=== PATIENT | male | born 1945 | race Caucasian/White ===

== ENCOUNTER 2024-05-25 18:07 | Observation (INO) | payer MEDICARE, BC ==
[2024-05-25 18:48] LABS: Basophils # (A) 0.1 k/uL (0-0.2); Basophils % (A) 1 %; Eosinophils # (A) 0.3 k/uL (0-0.7); Eosinophils % (A) 3 %; HCT 44.7 % (39.0-53.0); HGB 14.5 gm/dL (13.0-17.5); Lymphocytes # (A) 1.4 k/uL (1.0-4.8); Lymphocytes % (A) 16 %; MCH 30.9 pg (25.0-35.0); MCHC 32.4 g/dL (31.0-37.0); MCV 95.5 fL (80.0-100.0); Mean Platelet Volume 6.9; Monocytes # (A) 0.5 k/uL (0-1.0); Monocytes % (A) 6 %; Neutrophils # (A) 6.5 k/uL (1.3-7.7); Neutrophils % (A) 73 %; Platelet Count 213 k/uL (150-450); RBC 4.68 m/uL (4.30-5.90); RDW 12.9 % (11.5-15.5); WBC 8.8 k/uL (3.8-10.6)
[2024-05-25 18:50] LABS: Appearance,Urine Clear (Clear); Bilirubin,Urine Negative (Negative); Blood,Urine Negative (Negative); Color,Urine Light Yellow; Glucose,Urine (UA) Negative (Negative); Ketones,Urine Negative (Negative); Leukocyte Esterase,Urine Negative (Negative); Nitrite,Urine Negative (Negative); PH, Urine 6.5 (5.0-8.0); Protein,Urine Negative (Negative); Specific Gravity,Urine 1.023 (1.001-1.035); Urobilinogen,Urine <2.0 mg/dL (<2.0)
[2024-05-25 18:59] LABS: ALT 16 U/L (4-49); AST 23 U/L (17-59); African American GFR (CKD) >90 (>60 ml/min/1.73 sqM); Albumin 4.5 g/dL (3.5-5.0); Alkaline Phosphatase 73 U/L (38-126); Anion Gap 9 mmol/L; Blood Urea Nitrogen 27 mg/dL (9-20); Calcium 9.7 mg/dL (8.4-10.2); Carbon Dioxide 30 mmol/L (22-30); Chloride 100 mmol/L (98-107); Glucose 100 mg/dL (74-99); Non-African American GFR(CKD) 80 (>60 ml/min/1.73 sqM); Potassium 3.9 mmol/L (3.5-5.1); Sodium 139 mmol/L (137-145); Total Bilirubin 0.6 mg/dL (0.2-1.3); Total Protein 7.5 g/dL (6.3-8.2)
--- NOTE | 2024-05-25 19:23 | ED ---
General Adult HPI - General Chief complaint: Neuro Symptoms/Deficit Stated complaint: fall,dizzy Time Seen by Provider: 05/25/24 18:31 Source: patient, EMS, RN notes reviewed, old records reviewed Mode of arrival: EMS Limitations: no limitations - History of Present Illness Initial comments: Patient is a 79-year-old male who was transferred here from [facility] for stroke rule out. At approximately 11 or 11:30 AM this morning, jose ramon horn was having an expressive aphasia episode that lasted 30 to 45 minutes. Presented to [place] [facility] afterwards but was asymptomatic at that time. Patient does have a history of Parkinson's disease, hypertension, enlarged prostate. Patient currently denies any symptoms. Workup at [place] was unremarkable including CT brain that showed no evidence of acute intracranial process. Patient was transferred here for further evaluation by neurology. He has no acute complaints at this time. Is at his normal baseline. Only statement he adds that over the last year or so he has been having numerous episodes of near fainting spells with falls. Most recently this occurred 2 or 3 weeks ago. - Related Data Home Medications Medication Instructions Recorded Confirmed Atorvastatin [Lipitor] 10 mg PO HS 05/25/24 05/25/24 Carbidopa-Levodopa 25-100 mg 1 tab PO W/SUPPER 05/25/24 05/25/24 [Sinemet 25-100] Carbidopa-Levodopa 25-100 mg 2 tab PO BID-W/MEALS 05/25/24 05/25/24 [Sinemet 25-100] Carbidopa-Levodopa ER 50-200Mg 1 tab PO HS 05/25/24 05/25/24 [Sinemet CR 50-200 mg] Celecoxib [CeleBREX] 100 mg PO BID 05/25/24 05/25/24 Fludrocortisone [Florinef] 0.1 mg PO BID 05/25/24 05/25/24 Midodrine HCl [ProAmantine] 2.5 mg PO HS 05/25/24 05/25/24 Rasagiline Mesylate [Azilect] 1 mg PO DAILY 05/25/24 05/25/24 Tamsulosin [Flomax] 0.4 mg PO HS 05/25/24 05/25/24 fluvoxaMINE MALEATE [Luvox] 100 mg PO DAILY 05/25/24 05/25/24 rOPINIRole HCL [Requip] 1 mg PO 05/25/24 05/25/24 Allergies Allergy/AdvReac Type Severity Reaction Status Date / Time No Known Allergies Allergy Verified 05/25/24 19:09 Review of Systems ROS Statement: Those systems with pertinent positive or pertinent negative responses have been documented in the HPI. Review of Systems: CONST: Denies fever EYES: Denies blurry vision ENT: Denies nasal congestion C/V: Denies Chest pain RESP: Denies shortness of breath GI: Denies abdominal pain : Denies dysuria SKIN: Denies rash. MSK: Denies joint pain. NEURO: Denies headache ROS Other: All systems not noted in ROS Statement are negative. Past Medical History Past Medical History: Hypertension, Prostate Disorder Additional Past Medical History / Comment(s): Enlarged prostate, Parkinsons History of Any Multi-Drug Resistant Organisms: None Reported Past Surgical History: Heart Catheterization Additional Past Surgical History / Comment(s): Varicose vein surgery Past Psychological History: Anxiety Smoking Status: Never smoker Past Alcohol Use History: Occasional Past Drug Use History: None Reported General Exam - General Exam Comments Initial Comments: General: Appears in no acute distress. HEAD: Normal with no signs of head trauma. EYES: PERRLA, EOMI, conjunctiva normal, no discharge. Pupils are 3 mm and equal bilaterally. ENT: Hearing grossly intact, normal oropharynx. RESPIRATORY: Clear breath sounds bilaterally. No wheezes, rales, or rhonchi. C/V: Regular rate and rhythm. S1 and S2 auscultated, no edema, peripheral pulses 2+ and intact throughout ABD: Abd is soft, nontender, nondistended EXT: Normal range of motion, no obvious deformity SKIN: No rashes or lesions observed on exposed skin. NEURO: Alert and oriented x 4. Cranial nerves II-XII intact. No focal sensory or strength deficits. NIH is 0. GCS of 15. Some baseline mild tremor with history of Parkinson's which is baseline for him. Limitations: no limitations Course Vital Signs 05/25/24 18:11 Temperature 98.8 F Pulse Rate 72 Respiratory 18 Rate Blood Pressure 182/99 O2 Sat by Pulse 100 Oximetry Medical Decision Making - Medical Decision Making Was pt. sent in by a medical professional or institution (, PA, TOOL SHAPER SETUP OPERATOR, urgent care, hospital, or retirement...) When possible be specific @ -Transferred from [facility] for TIA evaluation. Did you speak to anyone other than the patient for history (EMS, parent, family, police, friend...)? What history was obtained from this source @ -No Did you review nursing and triage notes (agree or disagree)? Why? @ -I reviewed and agree with nursing and triage notes Were old charts reviewed (outside hosp., previous admission, EMS record, old EKG, old radiological studies, urgent care reports/EKG's, retirement records)? Report findings @ -Reviewed documentation from [facility] including CT result. CT imaging uploaded to our system. Differential Diagnosis (chest pain, altered mental status, abdominal pain women, abdominal pain men, vaginal bleeding, weakness, fever, dyspnea, syncope, headache, dizziness, GI bleed, back pain, seizure, CVA, palpatations, mental health, musculoskeletal)? @ -Differential CVA Ischemic stroke, hemorrhagic stroke, brain tumor, atypical migraine, Wernicke's encephalopathy, seizure, multiple sclerosis, meningitis, encephalitis, hypoglycemia, Guillain-Mahoney, electrolytes disturbance, myasthenia gravis.... This is not meant to be an all-inclusive list EKG interpreted by me (3pts min.). @ -As above X-rays interpreted by me (1pt min.). @ -None done CT interpreted by me (1pt min.). @ -None done U/S interpreted by me (1pt. min.). @ -None done What testing was considered but not performed or refused? (CT, X-rays, U/S, labs)? Why? @ -None What meds were considered but not given or refused? Why? @ -Considered aspirin but patient already received 325 mg of aspirin from [facility]. Did you discuss the management of the patient with other professionals (professionals i.e. , PA, TOOL SHAPER SETUP OPERATOR, lab, RT, psych nurse, social studies department chair, body man, teacher, combat information center officer, family service caseworker)? Give summary @ -Discussed with admitting provider, Jumana BOWEN who accepted the admission. Was smoking cessation discussed for >3mins.? @ -No Was critical care preformed (if so, how long)? @ -No Were there social determinants of health that impacted care today? How? (Homel essness, low income, unemployed, alcoholism, drug addiction, transportation, low edu. Level, literacy, decrease access to med. care, care home, rehab)? @ -No Was there de-escalation of care discussed even if they declined (Discuss DNR or withdrawal of care, Hospice)? DNR status @ -No What co-morbidities impacted this encounter? (DM, HTN, Smoking, COPD, CAD, Cancer, CVA, ARF, Chemo, Hep., AIDS, mental health diagnosis, sleep apnea, morbid obesity)? @ -Parkinson's, hypertension Was patient admitted / discharged? Hospital course, mention meds given and route, prescriptions, significant lab abnormalities, going to OR and other pertinent info. @ -Patient presents emergency department complaining of workup for TIA. Workup at [facility] was unremarkable but was transferred here for further evaluation. Patient currently has no symptoms. NIH is currently 0. Vitals are within acceptable limit except for mild hypertension which will be permissively. We will repeat some labs to admit the patient for TIA evaluation and neurology consultation. He was in agreement this plan. He already received 125 mg of aspirin. EKG shows no signs of acute ischemia. Labs are all within acceptable limits. I spoke with the admitting provider, ANDRÉS Denney of [facility] who accepted the admission. Undiagnosed new problem with uncertain prognosis? @ -No Drug Therapy requiring intensive monitoring for toxicity (Heparin, Nitro, Insulin, Cardizem)? @ -No Were any procedures done? @ -No Diagnosis/symptom? @ -TIA Acute, or Chronic, or Acute on Chronic? @ -Acute Uncomplicated (without systemic symptoms) or Complicated (systemic symptoms)? @ -Complicated Side effects of treatment? @ -No Exacerbation, Progression, or Severe Exacerbation? @ -No Poses a threat to life or bodily function? How? (Chest pain, USA, IA, pneumonia, PE, COPD, DKA, ARF, appy, cholecystitis, CVA, Diverticulitis, Homicidal, Suicidal, threat to staff... and all critical care pts) @ -Possibly, yes - Lab Data Result diagrams: 05/25/24 18:40 05/25/24 18:40 Lab Results 05/25/24 05/25/24 05/25/24 Range/Units 18:40 18:40 18:40 WBC 8.8 (3.8-10.6) k/uL RBC 4.68 (4.30-5.90) m/uL Hgb 14.5 (13.0-17.5) gm/dL Hct 44.7 (39.0-53.0) % MCV 95.5 (80.0-100.0) fL MCH 30.9 (25.0-35.0) pg MCHC 32.4 (31.0-37.0) g/dL RDW 12.9 (11.5-15.5) % Plt Count 213 (150-450) k/uL MPV 6.9 Neutrophils % 73 % Lymphocytes % 16 % Monocytes % 6 % Eosinophils % 3 % Basophils % 1 % Neutrophils # 6.5 (1.3-7.7) k/uL Lymphocytes # 1.4 (1.0-4.8) k/uL Monocytes # 0.5 (0-1.0) k/uL Eosinophils # 0.3 (0-0.7) k/uL Basophils # 0.1 (0-0.2) k/uL Sodium 139 (137-145) mmol/L Potassium 3.9 (3.5-5.1) mmol/L Chloride 100 (98-107) mmol/L Carbon Dioxide 30 (22-30) mmol/L Anion Gap 9 mmol/L BUN 27 H (9-20) mg/dL Creatinine 0.91 (0.66-1.25) mg/dL Est GFR (CKD-EPI)AfAm >90 (>60 ml/min/1.73 sqM) Est GFR (CKD-EPI)NonAf 80 (>60 ml/min/1.73 sqM) Glucose 100 H (74-99) mg/dL Calcium 9.7 (8.4-10.2) mg/dL Total Bilirubin 0.6 (0.2-1.3) mg/dL AST 23 (17-59) U/L ALT 16 (4-49) U/L Alkaline Phosphatase 73 (38-126) U/L Total Protein 7.5 (6.3-8.2) g/dL Albumin 4.5 (3.5-5.0) g/dL Urine Color Light Yellow Urine Appearance Clear (Clear) Urine pH 6.5 (5.0-8.0) Ur Specific Meredith 1.023 (1.001-1.035) Urine Protein Negative (Negative) Urine Glucose (UA) Negative (Negative) Urine Ketones Negative (Negative) Urine Blood Negative (Negative) Urine Nitrite Negative (Negative) Urine Bilirubin Negative (Negative) Urine Urobilinogen <2.0 (<2.0) mg/dL Ur Leukocyte Esterase Negative (Negative) - EKG Data -: EKG Interpreted by Me EKG Comments: 12-lead Electrocardiogram Interpretation Note EKG was reviewed and interpreted by myself. 12-lead ECG performed at 1848 is interpreted by me as revealing normal sinus rhythm at a rate of 80 beats per minute. [place] is normal. WA interval is 153 ms, QRS duration is 88 ms, QTc is 416 ms.. There were no ST or T wave abnormalities to suggest myocardial ischemia or injury. R wave progression across the precordium was satisfactory. By my interpretation this EKG is non-diagnostic for acute ischemia. Disposition Clinical Impression: TIA (transient ischemic attack) Disposition: ADMITTED IP TO THIS HOSP Condition: Stable Referrals: Jair Dawkins MD [Primary Care Provider] - 1-2 days Time of Disposition: 19:15
[2024-05-25] MEDS: TAMSULOSIN 0.4 MG CAP.ER.24H PO SCH (20:08)
[2024-05-25] MEDS: ATORVASTATIN 10 MG TAB PO SCH (20:08)
[2024-05-25] MEDS: FLUDROCORTISONE 0.1 MG TAB PO SCH (20:08)
[2024-05-25] MEDS: MIDODRINE 5 MG TAB PO SCH (20:09)
[2024-05-25] MEDS: CARBIDOPA-LEVODOPA ER 50-200MG 1 EACH TABLET.ER PO SCH (20:33)
[2024-05-26] MEDS: CARBIDOPA-LEVODOPA 25-100 MG 1 EACH TAB PO SCH ×2 (06:35→18:07)
[2024-05-26 08:40] LABS: LDL Cholesterol,Calculated 87.8 mg/dL (0.0-131.0); VLDL Calculation 19.08 mg/dL (5.00-40.00)
[2024-05-26] MEDS: ASPIRIN 325 MG TAB PO SCH (08:51)
[2024-05-26] MEDS: MELOXICAM 7.5 MG TAB PO SCH (08:51)
[2024-05-26 09:45] VITALS: RESP 16
--- NOTE | 2024-05-26 15:50 | MR ---
INDICATION: Patient age:Male; 79 years old; Reason for study: TIA; PHH. COMPARISON: Outside institution CT head 05/25/2024 TECHNIQUE: Multi planar, multi sequence imaging was performed through the brain without the administr ation intravenous contrast. FINDINGS: The ingram-white junctions, ventricular system, basal cisterns appear unremarkable. Age-appropriate cer ebral volume loss. Prominent perivascular space versus remote lacunar infarct within the left basal g anglia and left midbrain. Diffusion-weighted imaging shows no evidence of restricted diffusion to sug gest acute/subacute infarct. Intracranial arterial flow voids are maintained. Midline structures show no abnormality. Patchy areas of high T2/FLAIR signal intensity are seen within the periventricular w raudel matter. The susceptibility weighted images do not reveal any evidence for micro-hemorrhage. The bone marrow signal is within normal limits. Bilateral aphakia. Mild mucosal thickening of the erich ateral maxillary sinuses left greater than right. Left maxillary sinus 7 mm mucous retention cyst. Mo derate mucosal thickening of the right sphenoid sinus. IMPRESSION: 1. No evidence of intracranial mass or acute/subacute infarct. 2. Nonspecific white matter changes, likely related to small vessel ischemic disease. 3. Prominent perivascular spaces versus remote lacunar infarcts within the left basal ganglia and lef t midbrain. 4. Paranasal sinus disease. [facility], , 05/26/2024 3:47 PM
--- NOTE | 2024-05-26 16:31 | CA ---
Transthoracic Echo Report Name: Kamran Lisa Age: 79 Gender: M : 1945 Exam Date: 05/26/2024 13:22 Exam Location: [facility] Ht (in): 71 Wt (lb): 182 Ordering Physician: Carmita Patterson MD Attending/Referring Phys: Business System Manager Yaquelin Lucero RDCS Procedure CPT: Indications: tia Cardiac Hx: Technical Quality: Fair Contrast 1: Agitated Saline Total Dose (mL): Contrast 2: Total Dose (mL): MEASUREMENTS (Male / Female) Normal Values 2D ECHO LV Diastolic Diameter PLAX 4.5 cm 4.2 - 5.9 / 3.9 - 5.3 cm LV Systolic Diameter PLAX 2.9 cm IVS Diastolic Thickness 1.1 cm 0.6 - 1.0 / 0.6 - 0.9 cm LVPW Diastolic Thickness 1.3 cm 0.6 - 1.0 / 0.6 - 0.9 cm LV Relative Wall Thickness 0.5 RV Internal Dim ED PLAX 1.4 cm Aortic Root Diameter 3.4 cm LA Systolic Diameter LX 3.4 cm 3.0 - 4.0 / 2.7 - 3.8 cm LV Diastolic Volume MOD BP 73.4 cm??? 67 - 155 / 56 - 104 cm??? LV Systolic Volume MOD BP 33.9 cm??? - 58 / 19 - 49 cm??? LV Ejection Fraction MOD BP 53.8 % >= 55 % LV Cardiac Index MOD BP 1371.4 cm???/min???m??? LV Diastolic Volume MOD 4C 79.3 cm??? LV Systolic Volume MOD 4C 34.4 cm??? LV Ejection Fraction MOD 4C 56.7 % LV Cardiac Index MOD 4C 1563.9 cm???/min???m??? LV Diastolic Length 4C 7.9 cm LV Systolic Length 4C 6.6 cm LV Diastolic Volume MOD 2C 65.7 cm??? LV Systolic Volume MOD 2C 31.7 cm??? LV Ejection Fraction MOD 2C 51.8 % LV Cardiac Index MOD 2C 1183.3 cm???/min???m??? LV Diastolic Length 2C 7.5 cm LV Systolic Length 2C 6.2 cm LA Volume 50.4 cm??? 18 - 58 / 22 - 52 cm??? LA Volume Index 24.7 cm???/m??? 16 - 28 cm???/m??? M-MODE Aortic Root Diameter MM 3.6 cm LA Systolic Diameter MM 3.4 cm LA Ao Ratio MM 0.9 AV Cusp Separation MM 2.0 cm DOPPLER AV Peak Velocity 151.5 cm/s AV Peak Gradient 9.2 mmHg AI Peak Velocity 479.8 cm/s AI Peak Gradient 92.1 mmHg AI Pressure Half Time 533.9 ms LVOT Peak Velocity 119.5 cm/s LVOT Peak Gradient 5.7 mmHg LVOT Velocity Time Integral 26.8 cm MV Area PHT 2.8 cm??? Mitral E Point Velocity 78.5 cm/s Mitral A Point Velocity 93.2 cm/s Mitral E to A Ratio 0.8 MV Deceleration Time 267.9 ms TR Peak Velocity 309.2 cm/s TR Peak Gradient 38.3 mmHg Right Ventricular Systolic Press 42.1 mmHg FINDINGS Left Ventricle Left ventricular ejection fraction is estimated at 55-60%. Normal left ventricular systolic function with no obvious regional wall motion abnormalities. Left ventricular cavity size normal. Left ventricular wall thickness normal. Right Ventricle Mild right ventricular dilatation. Mild pulmonary hypertension. Right Atrium Mild right atrial dilatation. Negative agitated saline bubble study for right to left shunt. Left Atrium Mild left atrial dilatation. Mitral Valve Structurally normal mitral valve. Mild mitral regurgitation. No mitral stenosis. Aortic Valve Trileaflet aortic valve. Diffuse thickening (sclerosis) of the aortic valve cusps without reduced excursion. Moderate aortic regurgitation. Tricuspid Valve Structurally normal tricuspid valve. No tricuspid stenosis. Mild tricuspid regurgitation. Pulmonic Valve Structurally normal pulmonic valve. Mild pulmonic regurgitation. No pulmonic stenosis. Pericardium No pericardial or pleural effusion. Aorta Normal size aortic root and proximal ascending aorta. CONCLUSIONS Left ventricular ejection fraction 55-60% RVSP 42 Negative bubble study Mild mitral regurgitation Mild to moderate aortic regurgitation Previewed by: Dr. Sam Campos DO (Electronically Signed) Final Date: 26 May 2024 16:30
--- NOTE | 2024-05-26 21:48 | HP ---
HISTORY AND PHYSICAL This is a combined history and physical and discharge summary. CHIEF COMPLAINT: Falling and dizzy. HISTORY OF PRESENT ILLNESS: This is a 79-year-old gentleman with a past medical history of multiple medical problems, referred from [facility] with short episodes of expressive aphasia yesterday, lasted for 30 to 45 minutes. Currently, the patient improved significantly. The patient is able to walk. Workup in the [facility] was negative. Neurology, Dr. Charlton had seen the patient. Recommended MRI. There is no history of any fever, rigors, or chills at this time. PAST MEDICAL HISTORY: Reviewed include hypertension, history of prostate disorder. Rest of the chart and rest of the history is also noted. HOME MEDICATIONS: Reviewed include Sinemet, dose and rest of medications reviewed. ALLERGIES: None. FAMILY HISTORY: No history of heart disease or strokes in the family. SOCIAL HISTORY: Occasional alcohol. REVIEW OF SYSTEMS: Fourteen-point review of systems is negative except as mentioned earlier. PHYSICAL EXAMINATION: VITAL SIGNS: Pulse is 72, blood pressure 160/84, respirations 16. HEENT: Conjunctivae normal. CARDIOVASCULAR: S1, S2. RESPIRATIONS: Breath sounds diminished at the bases. ABDOMEN: Soft. LEGS: No edema. NERVOUS SYSTEM: Nonfocal. LABORATORY DATA: Noted. ASSESSMENT: 1. Dysphagia, possible acute transient ischemic attack present on admission. 2. Hypertension. 3. History of Parkinson's. 4. Multiple medical issues. RECOMMENDATIONS AND DISCUSSION: This is a 79-year-old gentleman presented with multiple complex medical issues. The patient is completely nonfocal at this time. The patient is extremely keen on going home at this time. Neurology has recommended MRI scan. If MRI scan is okay and if Neurology cleared the patient, the patient could be discharged home. I recommend to continue the home medications, Lipitor and as well as antiplatelet agents. The prognosis was extremely guarded, but overall the patient is currently stable at this time. We will closely follow with Dr. Charlton. MMRADHAL / ROBERTN: [id number] /
--- NOTE | 2024-05-27 00:24 | EEG ---
ELECTROENCEPHALOGRAM REPORT PREAMBLE: This is a 79-year-old male, who presented with TIA. He has history of recurrent syncope. Rule out any seizure disorder. The patient also has Parkinson's disorder. EEG FINDINGS: This is a 21-channel digital EEG recorded with video component, utilizing 10/20 international system with referential and bipolar montages. Background consists of well-developed, moderately well regulated, predominantly 7 hertz theta activity seen in bihemispheric region. Background is posterior dominant and is reactive to eye opening and closing. Photic driving response was not seen. Different stages of sleep were not seen. No focal or generalized epileptiform activity was seen. IMPRESSION: This is a mildly abnormal EEG due to background slowing, suggestive of mild encephalopathy. No focal, lateralized, or epileptiform activity was seen. MMODL / IJN: [id number] /
--- NOTE | 2024-05-27 00:58 | CT ---
EXAMINATION TYPE: CT angio head neck DATE OF EXAM: 05/26/2024 5:34 PM COMPARISON: None. CLINICAL INDICATION: Male, 79 years old with history of TIA, tia TECHNIQUE: CT of the brain is performed utilizing 3 mm thick sections through the posterior fossa and 3 mm thick sections through the remaining calvarium. Study is performed within 24 hours of arrival to the hospital. Contrast used:65cc mL of Isovue 370 without and with IV Contrast, (none if empty) CT DLP: 1317.6 mGycm, Automated exposure control for dose reduction was used. FINDINGS: No abnormal hyperdensity is present to suggest an acute intracranial hemorrhage. No mass lesion is evident. No acute infarcts are evident. There is an old lacunar infarct left basal ganglion.. Differential inc ludes Virchow-Glenn's space. Very mild Periventricular white matter hypodensity is present compatible with mild chronic white matter ischemic changes. Ventricles and sulci are mildly prominent for the patient age. Paranasal sinuses and mastoid air cells within the [id number] are clear. IMPRESSION: 1. No acute intracranial process. Follow up MRI can be performed as clinically indicated. 2. Chronic appearing periventricular white matter ischemic changes with age related atrophy. 3. Old left basal) EXAMINATION TYPE: CT angio head neck DATE OF EXAM: 05/26/2024 5:34 PM COMPARISON: None. CLINICAL INDICATION: Male, 79 years old with history of TIA, tia TECHNIQUE: CTA scan is performed with axial images are obtained, coronal and sagittal reformatted lety ges are reviewed. 3-D reconstructed images are created on an independent workstation and reviewed. [facility] images are reviewed. NASCET criteria was used in interpretation of this exam? Contrast used:65cc mL of Isovue 370 without and with IV Contrast, (none if empty) Oral contrast used: (none if empty) CT DLP: 1317.6 mGycm, Automated exposure control for dose reduction was used. FINDINGS: Carotid/Vascular Structures: There is a 3 vessel arch. Common carotid arteries bifurcate into internal and external carotid arteries without significant francia w limiting stenosis. Vertebral arteries are codominant. Internal carotid arteries and vertebral arteries are patent to the skull base. Cervical of [place]: Vertebral basilar system appears normal. Posterior cerebral vasculature is unrema rkable. Internal carotid arteries bifurcate normally into A1 and M1 segments. A2 segments are normal. The anterior communicating artery is patent. The right posterior communicating artery is absent. The left posterior communicating artery is absent. IMPRESSION: 1. No flow-limiting stenosis bilateral carotid bifurcations. 2. Normal [place] [facility] Jeanette Linder, Workstation: [facility], 05/27/2024 12:56 AM
[2024-05-27 07:54] VITALS: BP 129/67; TEMP 97.5
[2024-05-27] MEDS: RASAGILINE MESYLATE 1 MG PO SCH (08:48)
--- NOTE | 2024-05-27 08:59 | P.CNNES ---
History of Present Illness Consult date: 05/26/24 Requesting physician: Jaswinder Allen Reason for Consult: TIA History of Present Illness: Patient is a 79-year-old right-handed male with history of Parkinson's disease, syncopal spells, came to the hospital as a transfer from [facility] by ambulance yesterday at 6:07 PM for possible TIA. Patient states that he was having lunch, talking to his brother and suddenly at around 11:30 AM, he could n ot make a sentence while talking. He could not come up with the right words and was not making sense. There was no drooling, facial droop, any numbness tingling focal weakness any headache or visual disturbance. Family got concerned and called EMS. This lasted for about 20-30 minutes and then symptoms resolved by the time patient came to the ER. Patient's significant other was also present, who mentioned that before she left for her own appointment at 11 AM, patient was slightly confused, as he wasn't able to make decision and not making sense but she did not make anything of it. However when he was talking to his brother later, who noticed a definite issue with his speech as mentioned above. EMS flowsheet not available in the chart. Vital signs on arrival blood pressure 182/99, which came down to 144/72, pulse 72 temperature 98.8. Blood test shows normal CBC, CMP. UA negative. EKG showed sinus rhythm. Patient's home medications include Sinemet 50/200, 1 tablet at bedtime, Sinemet 25/100, 2 tablets twice daily, Sinemet 25/100 at bedtime, Requip 1 mg at bedtime, Azilect 1 mg, Florinef 0.1 mg twice daily, Celebrex, Luvox, Lipitor 10 mg, midodrine 2.5 mg at bedtime and Flomax. Patient does not take any antiplatelet medication at home. Patient has never smoked, drinks 1-2 beer per week, denies having any pacemaker. Patient was diagnosed with Parkinson's disease 12 years ago. He used to see a neurologist Dr. Noguera in [place], but now he follows up with neurologist in [facility]. Patient states that he has history of dizzy spells off and on for last 1 year. It has happened about 8 or 10 times, when while standing for some time when he becomes lightheaded, dizzy and falls down. He does not lose consciousness every time, just falls down, or comes to right back up.. Only one time symptoms lasted for a few minutes. He does not get dizzy or lightheaded when he first gets up. He usually grabs on something when he gets dizzy to prevent falls. Patient probably was diagnosed with orthostatic hypotension, as he has been taking midodrine for 3 months and Florinef started a month ago. Records from [facility]: CT head revealed no acute process. No intracranial hemorrhage or mass effect. Sphenoid sinusitis. CBC with WBC 7.5 hemoglobin 13.6, platelets are 186. BUN 27, creatinine 0.9. Electrolytes are normal, hepatic panel normal. Troponin negative. EKG showed normal sinus rhythm. NIH stroke scale was reported as 0 in the ER. Patient was given aspir in 325 mg in the ER, and transferred to [facility]. Review of Systems All pertinent positive and negative results are mentioned in HPI. Otherwise unremarkable. Past Medical History Past Medical History: Hypertension, Prostate Disorder Additional Past Medical History / Comment(s): Enlarged prostate, Parkinsons History of Any Multi-Drug Resistant Organisms: None Reported Past Surgical History: Heart Catheterization Additional Past Surgical History / Comment(s): Varicose vein surgery Past Anesthesia/Blood Transfusion Reactions: No Reported Reaction Past Psychological History: Anxiety Smoking Status: Never smoker Past Alcohol Use History: Occasional Past Drug Use History: None Reported Medications and Allergies Home Medications Medication Instructions Recorded Confirmed Type Atorvastatin [Lipitor] 10 mg PO HS 05/25/24 05/25/24 History Carbidopa-Levodopa 25-100 mg 1 tab PO W/SUPPER 05/25/24 05/25/24 History [Sinemet 25-100] Carbidopa-Levodopa 25-100 mg 2 tab PO BID-W/MEALS 05/25/24 05/25/24 History [Sinemet 25-100] Carbidopa-Levodopa ER 50-200Mg 1 tab PO HS 05/25/24 05/25/24 History [Sinemet CR 50-200 mg] Celecoxib [CeleBREX] 100 mg PO BID 05/25/24 05/25/24 History Fludrocortisone [Florinef] 0.1 mg PO BID 05/25/24 05/25/24 History Midodrine HCl [ProAmantine] 2.5 mg PO HS 05/25/24 05/25/24 History Rasagiline Mesylate [Azilect] 1 mg PO DAILY 05/25/24 05/25/24 History Tamsulosin [Flomax] 0.4 mg PO HS 05/25/24 05/25/24 History fluvoxaMINE MALEATE [Luvox] 100 mg PO DAILY 05/25/24 05/25/24 History rOPINIRole HCL [Requip] 1 mg PO HS 05/25/24 05/25/24 History Allergies Allergy/AdvReac Type Severity Reaction Status Date / Time No Known Allergies Allergy Verified 05/25/24 19:09 Physical Examination - Vital Signs Vital Signs: Vital Signs Temp Pulse Pulse Resp BP BP Pulse Ox 05/26/24 08:00 97.8 F 79 16 135/64 96 05/26/24 02:00 97.7 F 73 18 162/86 96 05/26/24 01:52 97.7 F 73 18 162/86 96 05/26/24 01:25 98.5 F 81 16 118/74 95 05/25/24 20:26 88 16 144/72 95 05/25/24 18:11 98.8 F 72 18 182/99 100 Intake and Output 05/25/24 05/26/24 05/26/24 22:59 06:59 14:59 Intake Total 240 Output Total 0 Balance 0 240 Intake: Oral 240 Output: Urine 0 Other: Voiding Method Toilet Toilet Urinal Urinal Weight 82.554 kg 82.554 kg Patient is an elderly male, very pleasant, in no acute distress. Patient is alert awake oriented to time place and person. Speech and language functions are normal. Patient can name and repeat very well. No aphasia or dysarthria. Attention, concentration and fund of knowledge is adequate. On cranial nerve examination, pupils are equal, round and reacting to light, visual lehman are full on confrontation, with no neglect on double simultaneous stimulation. Extraocular muscles are intact with no nystagmus. Face is symmetric, tongue protrudes to the midline. Palatal elevation and sensation normal, hearing and shoulder shrug normal, facial sensation normal. On muscle strength testing, there is no pronator drift and the strength is normal in arms and legs distally and proximally. Deep tendon reflexes are symmetric 1+ and plantars downgoing. Sensory to touch is equal with no neglect on double simultaneous stimulation. Cerebellar function showed no ataxia for [id number] testing. No dy sdiadochokinesia. No ataxia for [id number] testing on either side. Tone is increased mildly in the upper limbs and bulk of muscles normal. Gait deferred.. On general examination, there is no carotid bruit or murmur, S1-S2 audible. Chest is clear on consultation. Abdomen is soft nontender. No organomegaly, bowel sounds present. Peripheral pulses are present. No peripheral edema. Results - Laboratory Findings CBC and BMP: 05/25/24 18:40 05/25/24 18:40 Abnormal Lab Findings: Abnormal Labs 05/25/24 05/25/24 18:40 18:40 BUN 27 H Glucose 100 H HDL Cholesterol 76.10 H Assessment and Plan Assessment: * Probable TIA manifesting with expressive aphasia, lasted for about 30 minutes. All symptoms have resolved. Current NIH stroke scale 0. * Hypertension * Parkinson's disease * Orthostatic hypotension Plan: Patient needs workup for TIA. MRI of the brain without contrast, rule out acute CVA 2-D echo with bubble study to rule out PFO CTA head and neck Fasting a.m. lipid panel Hemoglobin A1c Permissive hypertension for next 24-48 hours Start aspirin 325 mg daily. Patient was not taking any antiplatelet medication at home. Check EEG, rule out any epileptiform activity Orthostatics Patient takes midodrine 2.5 mg at bedtime and Florinef 0.1 mg twice a day. He was recommended to take midodrine in the morning and also not take Florinef after 2 PM to prevent supine hypertension. Neuro checks every 2 hours. Continue patient's home dose of Sinemet for Parkinson's. It is fairly well controlled. Telemetry monitoring rule out any arrhythmia PT, OT, speech therapy DVT prophylaxis: Heparin 5000 units subcu every 12 hours Neurology will continue to follow. Thank you for the consult. Time with Patient: Greater than 30
[2024-05-27] MEDS: HEPARIN SODIUM,PORCINE 5,000 UNIT/ML 1 ML VIAL SQ SCH (09:42)
[2024-05-27 12:42] VITALS: PULSE 78
[2024-05-27] MEDS ORDERED: ATORVASTATIN 20 MG TAB PO SCH (21:00)
--- NOTE | 2024-05-28 10:43 | P.PN ---
Subjective Progress Note Date: 05/27/24 Patient was seen for follow-up. Patient's was also present. Denies any new focal symptoms. All symptoms have resolved. Objective - Vital Signs Vital signs: Vital Signs Temp 97.5 F L 05/27/24 07:53 Pulse 78 05/27/24 08:45 Resp 16 05/27/24 07:53 BP 129/67 05/27/24 08:45 Pulse Ox 93 L 05/27/24 07:53 FiO2 Intake & Output 05/26/24 05/27/24 05/27/24 18:59 06:59 18:59 Intake Total 684 540 180 Balance 684 540 180 Weight 81.4 kg Intake: Oral 684 540 180 Other: Voiding Method Toilet Toilet Urinal Urinal # Voids 2 2 1 - Exam Examination is completely nonfocal. Mentation normal. Tone is mildly increased. Speech and language functions normal. No aphasia or dysarthria. - Labs CBC & Chem 7: 05/25/24 18:40 05/25/24 18:40 Assessment and Plan Assessment: * Probable TIA manifesting with expressive aphasia, lasted for about 30 minutes. All symptoms have resolved. Current NIH stroke scale 0. * Hypertension * Hyperlipidemia, mild * Parkinson's disease * Orthostatic hypotension Plan: Patient needs workup for TIA. MRI of the brain without contrast, revealed no evidence of acute intracranial mass or acute/subacute infarct. Nonspecific white matter changes, likely related to small vessel ischemic disease. I personally reviewed MRI, agree with the findings. 2-D echo revealed normal LVEF 55 to 60%. No obvious regional wall motion abnormalities. Mild left atrial dilation. Negative agitated saline bubble study for ygutu-wv-lhdy shunt. Mild MR, mild to moderate AR. CTA head and neck revealed no flow-limiting stenosis bilateral carotid bifurcations. Normal [place]. Fasting a.m. lipid panel 183, LDL 87, HDL 76, triglycerides 95. We will increase Lipitor to 20 mg daily, to target LDL <70. Hemoglobin A1c 5.9 cholesterol Optimize control of blood pressure. Blood pressure is well-controlled. Patient has been loaded with aspirin 325 mg. Patient to be discharged on aspirin 81 mg daily. Patient was not taking any antiplatelet medication at home. EEG was mildly abnormal due to background slowing, suggestive of mild encephalopathy. No focal, lateralized or epileptiform activity was seen. Orthostatics were checked and negative. Sitting blood pressure 129/67 and standing was 146/68. Patient takes midodrine 2.5 mg at bedtime and Florinef 0.1 mg twice a day. He was recommended to take midodrine in the morning and also not take Florinef after 2 PM to prevent supine hypertension. Continue patient's home dose of Sinemet for Parkinson's. It is fairly well controlled. Telemetry monitoring showed no arrhythmia. PT, OT, speech therapy has cleared patient. Neurologically clear for discharge. May follow-up with his neurologist outpatient in 1 to 2 weeks.
--- NOTE | 2024-05-29 05:19 | P.DS ---
Providers Date of admission: 05/25/24 19:26 Expected date of discharge: 05/27/24 Attending physician: Alek Keyes Consults: 05/25/24 19:25 Consult Physician Routine Consulting Provider: Carmita Patterson Consult Reason/Comments: tia Do you want consulting provider notified?: Yes Primary care physician: Jair Dawkins MD Hospital Course: Final diagnosis Dysphagia, possible acute TIA, present on admission, CVA ruled out Hypertension History of Parkinson's GI prophylaxis DVT prophylaxis Full code Discharge disposition Patient is being discharged in a stable condition with guarded prognosis to home. Patient will follow-up with Dr. Mims in the outpatient setting upon discharge. Patient is to continue with aspirin and increase in Lipitor and also outpatient follow-up with neurology as scheduled. Total time taken is greater than 35 minutes. Hospital course This is a 79-year-old male who was recently admitted with concerns of possible TIA versus CVA. Patient was having episodes of expressive aphasia per family and initially went to [place] although sent here for neurology evaluation. Patient did undergo 2D echo along with MRI which were negative for acute stroke. Patient's symptoms have improved and would like to go home has been cleared by neurology recommending outpatient follow-up and continuing on aspirin along with increase in statin therapy. Please refer to other consultation note for further HPI. Currently no reports of chest pain, shortness of breath, or palpitations. Patient is afebrile. No reports of nausea or vomiting and patient is tolerating diet. Patient will be discharged home today. Physical exam: Gen: This is a 79-year-old male who is awake, alert and oriented x 3, well- developed, elderly appearing HEENT: Head is atraumatic, normocephalic. Pupils equal, round. Sclerae is anicteric. NECK: Supple. No JVD. No lymphadenopathy. No thyromegaly. LUNGS: Diminished breath sounds bilaterally otherwise clear to auscultation. No wheezes or rhonchi. No intercostal retractions. HEART: S1, S2 are muffled ABDOMEN: Soft. Bowel sounds are present. No masses. No tenderness. EXTREMITIES: No pedal edema. No calf tenderness. NEUROLOGICAL: Patient is awake, alert and oriented x 2, baseline. Cranial nerves 2 through 12 are grossly intact. Please refer to medication reconciliation sheet for a list of medications. The impression and plan of care has been dictated by Jumana Grant, Nurse Practitioner as directed. Dr. Wali MD I have performed a history and examination and MDM of this patient, discussed th e same with the dictator, and agree with the dictator's assessment and plan as written ,documented as a scribe. Based on total visit time, I have performed more than 50% of the visit. Patient Condition at Discharge: Stable Plan - Discharge Summary Discharge Rx Participant: Yes New Discharge Prescriptions: New Aspirin 81 mg PO DAILY #30 tab Atorvastatin [Lipitor] 20 mg PO DAILY #30 tablet Continue Tamsulosin [Flomax] 0.4 mg PO HS Midodrine HCl [ProAmantine] 2.5 mg PO HS Carbidopa-Levodopa ER 50-200Mg [Sinemet CR 50-200 mg] 1 tab PO HS Carbidopa-Levodopa 25-100 mg [Sinemet 25-100 mg] 2 tab PO BID-W/MEALS fluvoxaMINE MALEATE [Luvox] 100 mg PO DAILY Celecoxib [CeleBREX] 100 mg PO BID rOPINIRole HCL [Requip] 1 mg PO HS Rasagiline Mesylate [Azilect] 1 mg PO DAILY Fludrocortisone [Florinef] 0.1 mg PO BID Carbidopa-Levodopa 25-100 mg [Sinemet 25-100 mg] 1 tab PO W/SUPPER Discontinued Atorvastatin [Lipitor] 10 mg PO HS Discharge Medication List Carbidopa-Levodopa 25-100 mg [Sinemet 25-100 mg] 1 tab PO W/SUPPER 05/25/24 [History] Carbidopa-Levodopa 25-100 mg [Sinemet 25-100 mg] 2 tab PO BID-W/MEALS 05/25/24 [History] Carbidopa-Levodopa ER 50-200Mg [Sinemet CR 50-200 mg] 1 tab PO HS 05/25/24 [History] Celecoxib [CeleBREX] 100 mg PO BID 05/25/24 [History] Fludrocortisone [Florinef] 0.1 mg PO BID 05/25/24 [History] Midodrine HCl [ProAmantine] 2.5 mg PO HS 05/25/24 [History] Rasagiline Mesylate [Azilect] 1 mg PO DAILY 05/25/24 [History] Tamsulosin [Flomax] 0.4 mg PO HS 05/25/24 [History] fluvoxaMINE MALEATE [Luvox] 100 mg PO DAILY 05/25/24 [History] rOPINIRole HCL [Requip] 1 mg PO HS 05/25/24 [History] Aspirin 81 mg PO DAILY #30 tab 05/27/24 [Rx] Atorvastatin [Lipitor] 20 mg PO DAILY #30 tablet 05/27/24 [Rx] Follow up Appointment(s)/Referral(s): Jair Dawkins MD [Primary Care Provider] - 1-2 days Ulises Calle MD [Medical Doctor] - 1 Week Patient Instructions/Handouts: Transient Ischemic Attack (DC) Activity/Diet/Wound Care/Special Instructions: ok for discharge Activity limited until follow-up Follow-up with primary care provider Discussed with your primary care provider regarding neurology consultation outpatient referra Continue current medications as prescribed Continue with 81 mg of aspirin daily Discharge Disposition: HOME SELF-CARE
== END 2024-05-27 13:29 | disposition home or self-care (01) ==
LOC: EC 18:07 → 6NMEDSUR 19:26 → 3SCARD 05-26 01:00
PROVIDERS: ADMIT Hospitalist; ATTEND Hospitalist
DX: R13.10 Dysphagia, unspecified (principal); R47.01 Aphasia; I95.1 Orthostatic hypotension; I10 Essential (primary) hypertension; N40.0 Benign prostatic hyperplasia without lower urinary tract symptoms; G20.A1 Parkinson's disease without dyskinesia, without mention of fluctuations; F41.9 Anxiety disorder, unspecified; E78.5 Hyperlipidemia, unspecified; Z79.1 Long term (current) use of non-steroidal anti-inflammatories (NSAID); Z79.52 Long term (current) use of systemic steroids; Z79.899 Other long term (current) drug therapy
CPT/HCPCS: 96372; 99285; 36415; 95816; 93005; 93306; 97161; 92610; 92523; 80061; 80053; 85025; 81003; 83036; 70496; 70498; 70551; G0378 ×4; J1644; Q9967